=== PATIENT | female | born 1950 | race Caucasian/White ===

== ENCOUNTER 2020-10-14 10:09 | Observation (INO) ==
[2020-10-14] MEDS ORDERED: NITROGLYCERIN 2% OINT 1 INCH/GM PACK TOP STA (14:25)
[2020-10-14] MEDS ORDERED: NITROGLYCERIN SL 0.4 MG TABLET SL PRN ×2 (14:25→17:50)
[2020-10-14] MEDS ORDERED: ASPIRIN 325 MG TABLET PO STA (14:25)
[2020-10-14 15:06] LABS: Calcium 8.7 MG/DL (8.5-10.1); Osmolality,Calculated 285.4 MOS/KG (273-304)
[2020-10-14 16:51] LABS: Basophils # 0.1 10*3/uL (0.0-0.2); Basophils % 1.1 % (0.0-0.8); Eosinophils # 0.3 10*3/uL (0.0-0.87); Eosinophils % 2.8 % (0.00-10.9); Hematocrit 41.3 VOL% (35.7-47.0); Hemoglobin 12.5 GM/DL (12.0-16.0); Immature Granulocytes % 0.6 %; Immature Granulocytes Absolute 0.06 #; Lymphocytes % 20.4 % (21.3-54.2); Mean Corpuscular HGB Conc 30.3 GM/DL (32-36); Mean Corpuscular Volume 88.6 FL (87-102); Mean Platelet Volume 11.2 FL (9.6-12.0); Monocytes % 6.1 % (1.7-12.7); Platelet Count 251 T/CUMM (130-400); Red Blood Count 4.66 MC/CUMM (3.8-5.5); Red Cell Distribution Width 15.3 % (9.3-17.3); White Blood Count 9.8 T/CUMM (4-12)
[2020-10-14] MEDS ORDERED: ENOXAPARIN 80 MG/0.8 ML SYRINGE SUBCUT STA (17:35)
[2020-10-14] MEDS ORDERED: ACETAMINOPHEN 325 MG TABLET PO PRN (17:55)
[2020-10-14] MEDS ORDERED: ONDANSETRON 4 MG/2 ML VIAL IV PRN (17:55)
[2020-10-14] MEDS ORDERED: GLUCAGON 1 MG VIAL IM PRN ×2 (17:55)
[2020-10-14] MEDS ORDERED: hydrALAZINE 20 MG/1 ML VIAL IV PRN (17:55)
[2020-10-14] MEDS ORDERED: DEXTROSE 50% 25 GM/50 ML VIAL IV PRN ×2 (17:55)
[2020-10-14] MEDS ORDERED: ENOXAPARIN 30 MG/0.3 ML SYRINGE SUBCUT SCH (18:00)
[2020-10-14] MEDS: SODIUM CHLORIDE 0.45% 1,000 ML IV SCH (20:52)
[2020-10-14] MEDS ORDERED: DOXAZOSIN 2 MG TABLET PO SCH (21:00)
[2020-10-14] MEDS: INSULIN LISPRO 100 UNIT/ML SUBCUT SCH (23:33)
[2020-10-14] MEDS: NAPROXEN 500 MG TABLET PO SCH (23:38)
[2020-10-14] MEDS: METOPROLOL TARTRATE 100 MG TABLET PO SCH (23:38)
[2020-10-14] MEDS: HYDROCORTISONE 1% OINT 28.35 GM TUBE TOP SCH (23:41)
[2020-10-15 06:38] LABS: Basophils # 0.1 10*3/uL (0.0-0.2); Basophils % 1.1 % (0.0-0.8); Eosinophils # 0.4 10*3/uL (0.0-0.87); Eosinophils % 3.9 % (0.00-10.9); Hemoglobin 11.4 GM/DL (12.0-16.0); Immature Granulocytes % 0.6 %; Immature Granulocytes Absolute 0.05 #; Lymphocytes # 2.2 10*3/uL (1.4-4.0); Lymphocytes % 24.4 % (21.3-54.2); Mean Corpuscular HGB Conc 31.7 GM/DL (32-36); Mean Corpuscular Volume 85.5 FL (87-102); Mean Platelet Volume 11.4 FL (9.6-12.0); Monocytes % 7.5 % (1.7-12.7); Neutrophils % 62.5 % (38.7-73.9); Platelet Count 213 T/CUMM (130-400); Red Blood Count 4.21 MC/CUMM (3.8-5.5); White Blood Count 8.9 T/CUMM (4-12)
[2020-10-15 07:08] LABS: Albumin 3.1 G/DL (3.4-5.0); Bilirubin,Total 1.2 MG/DL (0.20-1.00); Calcium 8.4 MG/DL (8.5-10.1); Osmolality,Calculated 283.3 MOS/KG (273-304); Potassium 3.5 MMOL/L (3.5-5.1); Total Protein 6.8 G/DL (6.4-8.2)
[2020-10-15] MEDS ORDERED: DOXAZOSIN 4 MG TABLET PO SCH (09:00)
[2020-10-15] MEDS ORDERED: CHLORTHALIDONE 25 MG TABLET PO SCH (09:00)
[2020-10-15] MEDS ORDERED: PANTOPRAZOLE 40 MG TABLET PO SCH (09:00)
[2020-10-15 09:28] LABS: Risk Ratio 4.11; VLDL Cholesterol 73.6 MG/DL
[2020-10-15] MEDS ORDERED: ASPIRIN EC 81 MG TABLET PO SCH (09:30)
[2020-10-15] MEDS: SODIUM CHLORIDE 0.45% 1,000 ML IV SCH (09:41)
[2020-10-15] MEDS: METOPROLOL TARTRATE 100 MG TABLET PO SCH (09:47)
[2020-10-15] MEDS: NAPROXEN 500 MG TABLET PO SCH (09:49)
[2020-10-15] MEDS: HYDROCORTISONE 1% OINT 28.35 GM TUBE TOP SCH (09:50)
[2020-10-15] MEDS: INSULIN LISPRO 100 UNIT/ML SUBCUT SCH ×2 (09:54→13:25)
[2020-10-15] MEDS ORDERED: diphenhydrAMINE CAP 25 MG CAPSULE PO ONE (10:32)
[2020-10-15] MEDS ORDERED: DIAZEPAM 5 MG TABLET PO ONE (10:32)
[2020-10-15] MEDS ORDERED: LIDOCAINE 1% 20 ML VIAL ONE (10:35)
[2020-10-15] MEDS ORDERED: HEPARIN/NACL 0.9% 2 UNITS/ML 2,000 UNIT/1,000 ML BAG IV ONE (10:35)
[2020-10-15] MEDS ORDERED: fentaNYL 100 MCG/2 ML VIAL ONE (10:48)
[2020-10-15] MEDS ORDERED: MIDAZOLAM 2 MG/2 ML VIAL ONE ×2 (10:48→11:13)
[2020-10-15] MEDS ORDERED: hydrALAZINE 20 MG/1 ML VIAL ONE (11:20)
[2020-10-15] MEDS ORDERED: ACETAMINOPHEN/CODEINE 300-30 MG TABLET PO PRN (11:39)
[2020-10-15] MEDS ORDERED: MORPHINE 2 MG/1 ML SYRINGE IV PRN (11:39)
[2020-10-15 16:00] VITALS: BP 147/81
[2020-10-15] MEDS ORDERED: ROSUVASTATIN 10 MG TABLET PO SCH (21:00)
[2020-10-16] MEDS ORDERED: ISOSORBIDE MONONITRATE 30 MG TABLET PO SCH (09:00)
== END 2020-10-15 17:55 | disposition home or self-care (01) ==
LOC: N.ED 10:09 → N.EDINP 10:09 → N.TELEN 21:52
PROVIDERS: ADMIT Internal Medicine; ATTEND Internal Medicine
PROC: CLCCHCL (ICD-10-PCS; 2020-10-15 11:15)